=== PATIENT | female | born 1985 | race Two or more races ===

== ENCOUNTER 2016-09-05 03:03 | Inpatient (IN) | payer BC ==
--- NOTE | ~2016-09-05 | DS ---
Discharge Summary [facility] [id number] [place]. 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 SECONDARY DIAGNOSES: Portal vein thrombosis, pancytopenia. HISTORY OF PRESENT ILLNESS: Please see Dr. Ronquillo's dictation 09/05/2016. HOSPITAL COURSE: Admitted with severe hepatic encephalopathy with decreased level of conscious, ammonia level of 250. The patient received large doses of lactulose both p.o. and per rectum, IV hydration and fasting, in addition to her Xifaxan, and her ammonia level went down to 150 with normalization of mental status. The patient was not found to have any recurrence of her portal vein thrombosis so she was put back on the full dose of Lovenox 100 mg b.i.d. as she was supposed to have been. We requested records from her senior master scheduler in [place], we did not receive them but as her mental status was better and her MELD score was calculated only 14, it was advised that she follow up with her senior master scheduler regarding whether or not her severe hepatic encephalopathy would be indication for further moving up on the transplantation list. She agreed to be discharged, and she left following up with Dr. Ritesh Perez at [facility]. She will continue her home medications although spironolactone was held due to mild volume depletion at discharge. PAMELA/CURTIS Marco Thorne M.D. / [id number] CC: Jered Melendrez MD
--- NOTE | ~2016-09-05 | HP ---
History And Physical [address] [address] NAME: MICHEL RUANO : 85 STATUS : ADM IN [facility]#: [id number] AGE: 31 ADM/REG DATE : 09/05/16 MR#: [id number] REPORT SERV DATE: 09/05/16 DICTATED BY: FLO CATES DATE: 09/05/16 REPORT STATUS : Draft TRANSCRIBED BY: MODShayy DATE: 09/05/16 DATE OF ADMISSION: 09/05/2016 CHIEF COMPLAINT: A 31-year-old female with portal vein thrombosis cirrhosis, now presenting with lethargy and evidence of hepatic encephalopathy. HISTORY OF PRESENT ILLNESS: The patient's history was obtained through careful interview with the patient and her cousin coupled with review of [facility] medical records. The patient has longstanding cirrhosis thought to have been induced by a hypercoagulable state with portal vein thrombosis. She is supposedly on chronic therapeutic Lovenox, although for some reason her dose of Lovenox had recently been decreased to 40 mg subcutaneous daily, instead of a therapeutic dose. But it has been in the last few days that the patient has had increasing sleepiness and lethargy, and then finally on the morning of 09/04/2016 leading up to admission, the patient became overtly confused, disoriented, difficult to arouse at times with increasing lethargy. She describes dizziness, lightheadedness. She has had nausea, but no vomiting. She has been unstable on her feet with near falls. She describes a headache about 6/10 severity, felt diffusely. No abdominal pain but she has noticed abdominal distention. No chest pain. No shortness of breath. No cough. No fevers or chills. REVIEW OF SYSTEMS: Otherwise, complete review of systems was obtained and was negative. PAST MEDICAL HISTORY: 1. Portal vein thrombosis with hypercoagulable state. 2. Cirrhosis. 3. 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 4. Transient ischemic attack. 5. Asthma. 6. Hypertension. 7. Headache. 8. Anemia. 9. Right MCA 3 mm brain aneurysm. 10.Varices. 11.Splenomegaly. 12.Ascites. 13.Thrombocytopenia and anemia. 14.Urinary tract infection. 15.Childhood heart disease. History And Physical [address] [address] NAME: MICHEL RUANO : 85 STATUS : ADM IN PAT#: [id number] AGE: 31 ADM/REG DATE : 09/05/16 MR#: [id number] REPORT SERV DATE: 09/05/16 DICTATED BY: FLO CATES DATE: 09/05/16 REPORT STATUS : Draft TRANSCRIBED BY: CURTIS DATE: 09/05/16 PAST SURGICAL HISTORY: 1. Hysterectomy. 2. x2. 3. Cholecystectomy. 4. Tubal ligation. 5. Atrial septal defect, corrected at [facility]. ALLERGIES: PENICILLIN, NONSTEROIDAL ANTIINFLAMMATORY DRUGS, AND TRAMADOL. SOCIAL HISTORY: No tobacco abuse. No alcohol abuse. She is . Lives in [place], [place]. Immigrated from [place] when she was just 10 years old. Has two children. A 2- year-old son and a daughter less than a year old. She has had two miscarriages. No alcohol use. FAMILY HISTORY: Diabetes and cancer. She has had a sister who at 13 years of age of a liver disease and ascites. Grandmother with congestive heart failure. Brother with heart valve disease. CURRENT MEDICATIONS: Include ProAir, Tums, Bentyl, Benadryl, Lovenox 40 mg subcutaneous daily, Pepcid 40 mg p.o. daily, iron supplement, lactulose, Lopressor 25 mg p.o. daily, Protonix 40 mg p.o. daily, Phenergan, Zantac 150 mg p.o. daily, rifaximin 550 mg p.o. daily, and spironolactone 25 mg p.o. daily. PHYSICAL EXAMINATION: VITAL SIGNS: Temperature 98.8, pulse 112, blood pressure 146/82, respiratory rate 18, and O2 saturation 100% on room air. GENERAL: An ill-appearing female, very lethargic and confused. HEENT: Pupils equal, round, and reactive to light. No conjunctival pallor. No scleral icterus. Nares are patent. Oropharynx is clear of obstruction. Moist mucous membranes. NECK: Trachea midline. No thyromegaly. LYMPH: No cervical lymphadenopathy. No supraclavicular lymphadenopathy. RESPIRATORY: Clear to auscultation at bases. No wheezes, rales, or rhonchi. Normal respiratory effort. CARDIOVASCULAR: Tachycardic. Regular rhythm. No murmurs, rubs, or gallops. No current extremity edema is appreciated other than chronic appearing pitting edema around the ankles and shins. ABDOMEN: Seems distended by exam. Nontender throughout. I do appreciate hepatomegaly and splenomegaly by exam. DERMATOLOGICAL: Warm and dry extremities. No pallor. No cyanosis. PSYCHIATRIC: Very lethargic, but arousable to vocal stimuli. Oriented to location and time and recent history. Just very slow in her responses. She has a flat affect and irritable mood. LABORATORY DATA: Ammonia level 251, total bilirubin 2.9, alkaline phosphatase 257, AST 44, INR 1.4, lipase 71. White blood cell count 5.8, hemoglobin 9.9, hematocrit 27.7, and platelets 95. Sodium 147, potassium 3.7, chloride 116, bicarb 21, BUN 17, creatinine 0.9, History And Physical [facility] [address] [place]. [address] NAME: MICHEL RUANO : 85 STATUS : ADM IN [facility]#: [id number] AGE: 31 ADM/REG DATE : 09/05/16 MR#: [id number] REPORT SERV DATE: 09/05/16 DICTATED BY: FLO CATES DATE: 09/05/16 REPORT STATUS : Draft TRANSCRIBED BY: MODL DATE: 09/05/16 and glucose 106. STUDIES: EKG by my own evaluation shows sinus tachycardia. ASSESSMENT AND PLAN: 1. Hepatic encephalopathy. Severe history of seizures and coma from ammonia elevation. We will place on aggressive lactulose orally and lactulose enemas. 2. Portal vein thrombosis cirrhosis, resume Lovenox. Recheck a portal vein Doppler ultrasound. 3. Thrombocytopenia with anemia. 4. Ascites. KPL/MODL Flo Cates M.D. / [id number] CC: Kathy Lynne M.D.
[2016-09-05 02:15] LABS: BASOPHILS 0.2 %; BASOPHILS ABSOLUTE 0.01 10/3/uL (0.0-0.16); EOSINOPHILS ABSOLUTE 0.06 10/3/uL (0.0-0.53); ER CBC TAT 0 Hrs 03 Mins; HEMATOCRIT 27.7 % (36.0-48.0); HEMOGLOBIN 9.9 g/dL (12.0-16.0); IMMATURE GRANULOCYTES 0.2 %; IMMATURE GRANULOCYTES ABSOLUTE 0.01 10/3/uL (0.0-0.11); LYMPHOCYTES 11.6 %; LYMPHOCYTES ABSOLUTE 0.68 10/3/uL (0.67-4.30); MEAN CORPUS HGB CONC 35.7 g/dL (32.0-36.0); MEAN CORPUSCULAR VOLUME 95.2 fL (80-100); MEAN PLATELET VOLUME 9.2 fL (9.2-13.0); MONOCYTES 5.5 %; MONOCYTES ABSOLUTE 0.32 10/3/uL (0.21-1.20); NEUTROPHILS 81.5 %; NEUTROPHILS ABSOLUTE 4.76 10/3/uL (2.02-8.40); PLATELET COUNT 95 10/3/uL (150-400); RBC DISTRIBUTION WIDTH 13.2 % (12.0-16.0); RED CELL COUNT 2.91 10/6/uL (4.0-5.6); WHITE BLOOD CELLS 5.8 10/3/uL (4.5-10.5)
[2016-09-05 02:16] LABS: MANUAL DIFF NO %
[2016-09-05 02:20] LABS: ASCORBIC ACID (UR NOT ORDER) 20 (NEG); BILIRUBIN, URINE NEGATIVE (NEG); ER URINALYSIS TAT 0 Hrs 00 Mins; KETONE, URINE NEGATIVE (NEG); LEUKOCYTE ESTERASE(NOT OR SMALL (NEG); NITRITE (URINE) NEG (NEG); WBC (NOT ORDERED) (RFLEX) 8 (0-5)
[2016-09-05 02:23] LABS: INTERNATIONAL NORMAL RATI 1.4 UNITS (-); PARTIAL THROMBO TIME 38.9 SEC (22.5-37.2); PROTIME (NOT ORD) 16.8 SEC (12.0-14.5)
[2016-09-05 02:33] LABS: ALBUMIN 3.1 G/DL (3.5-5.0); ALKALINE PHOSPHATASE 257 U/L (45-117); BUN (BLOOD UREA NITROGEN) 17 MG/DL (6-23); CALCIUM, SERUM 8.2 MG/DL (8.5-10.4); CHLORIDE, SERUM 116 MMOL/L (96-112); CO2 (CARBON DIOXIDE) 21 MMOL/L (24-34); CREATININE 0.89 MG/DL (0.55-1.02); DIRECT BILIRUBIN 1.1 MG/DL (0.0-0.4); GFR AFRICAN AMERICAN 100 ML/MIN (>=60); GFR NON AFRICAN AMERICAN 86 ML/MIN (>=60); GLOBULIN 3.2 G/DL (2.5-4.1); GLUCOSE, SERUM 106 MG/DL (60-99); INDIRECT BILIRUBIN(NOT ORDER) 1.8 MG/DL (0.1-0.9); POTASSIUM, SERUM 3.7 MMOL/L (3.5-5.3); SGOT(AST) 44 U/L (5-40); SGPT(ALT) 32 U/L (5-65); SODIUM, SERUM 147 MMOL/L (135-148); TOTAL BILIRUBIN 2.9 MG/DL (0-1.2); TOTAL PROTEIN 6.3 G/DL (6.0-8.5); TROPONIN I <0.02 NG/ML (<0.05)
[2016-09-05 02:39] LABS: BAND NEUTROPHILS 3 %; EOSINOPHILS 3 %; EOSINOPHILS ABSOLUTE (CALC) 0.17 10/3/uL (0.0-0.53); ER DIFF TAT 0 Hrs 27 Mins; LYMPHOCYTES 9 %; LYMPHOCYTES ABSOLUTE (CALC) 0.52 10/3/uL (0.67-4.30); MONOCYTES 2 %; MONOCYTES ABSOLUTE (CALC) 0.12 10/3/uL (0.21-1.20); NEUTROPHILS ABSOLUTE (CALC) 4.99 10/3/uL (2.02-8.40); PLATELET ESTIMATE DEC (ADEQUATE); RBC MORPHOLOGY NORM (NORMAL); SEGMENTED NEUTROPHIL (0) 83 %; TOTAL NUCLEATED CELLS 100
[2016-09-05] MEDS ORDERED: BENTYL20 PO (04:16)
[2016-09-05] MEDS ORDERED: CONSTULOSE PO (04:16)
[2016-09-05] MEDS ORDERED: PROTONIX PO (04:16)
[2016-09-05] MEDS ORDERED: SPIRO25 PO (04:17)
[2016-09-05] MEDS ORDERED: PR25 PO (04:17)
[2016-09-05] MEDS ORDERED: PEPCID40 MG PO (04:18)
[2016-09-05] MEDS ORDERED: LOVENOX40 SC (04:29)
[2016-09-05] MEDS ORDERED: XIFAXAN550 MG PO (04:33)
[2016-09-05] MEDS ORDERED: PROAIR HFA INH (04:34)
[2016-09-05] MEDS ORDERED: TUMSROLL PO (04:35)
[2016-09-05] MEDS ORDERED: ALBUTEROL0.083 % INH (04:35)
[2016-09-05] MEDS ORDERED: FERROUS SULF325 M1 PO (04:36)
[2016-09-05] MEDS ORDERED: BEN25 PO (04:36)
[2016-09-05] MEDS ORDERED: ZANTAC 150 PO (04:37)
[2016-09-05] MEDS ORDERED: LOP25 PO (04:37)
[2016-09-05] MEDS ORDERED: *UNABLE3 (04:39)
[2016-09-05 12:04] LABS: HEMOGLOBIN 8.9 g/dL (12.0-16.0); MEAN CORPUS HGB CONC 35.9 g/dL (32.0-36.0); MEAN CORPUSCULAR HEMOGLOB 34.8 pg (26.0-34.0); MEAN CORPUSCULAR VOLUME 96.9 fL (80-100); MEAN PLATELET VOLUME 9.5 fL (9.2-13.0); PLATELET COUNT 90 10/3/uL (150-400); RBC DISTRIBUTION WIDTH 13.3 % (12.0-16.0); RED CELL COUNT 2.56 10/6/uL (4.0-5.6); WHITE BLOOD CELLS 4.1 10/3/uL (4.5-10.5)
[2016-09-05 12:08] LABS: HEMATOCRIT 24.8 % (36.0-48.0); MANUAL DIFF YES %
[2016-09-05 12:16] LABS: INTERNATIONAL NORMAL RATI 1.6 UNITS (-); PARTIAL THROMBO TIME 55.8 SEC (22.5-37.2); PROTIME (NOT ORD) 19.1 SEC (12.0-14.5)
[2016-09-05 12:33] LABS: ALBUMIN 2.7 G/DL (3.5-5.0); ALKALINE PHOSPHATASE 218 U/L (45-117); BUN (BLOOD UREA NITROGEN) 17 MG/DL (6-23); CALCIUM, SERUM 8.4 MG/DL (8.5-10.4); CHLORIDE, SERUM 122 MMOL/L (96-112); CO2 (CARBON DIOXIDE) 23 MMOL/L (24-34); CREATININE 0.91 MG/DL (0.55-1.02); GFR AFRICAN AMERICAN 97 ML/MIN (>=60); GFR NON AFRICAN AMERICAN 84 ML/MIN (>=60); GLOBULIN 2.8 G/DL (2.5-4.1); GLUCOSE, SERUM 99 MG/DL (60-99); POTASSIUM, SERUM 3.6 MMOL/L (3.5-5.3); SGOT(AST) 41 U/L (5-40); SGPT(ALT) 30 U/L (5-65); SODIUM, SERUM 151 MMOL/L (135-148); TOTAL BILIRUBIN 2.6 MG/DL (0-1.2); TOTAL PROTEIN 5.5 G/DL (6.0-8.5); ULTRASENSITIVE TSH 0.956 MCIU/ML (0.358-3.740)
[2016-09-05 12:38] LABS: BAND NEUTROPHILS 3 %; EOSINOPHILS 1 %; EOSINOPHILS ABSOLUTE (CALC) 0.04 10/3/uL (0.0-0.53); LYMPHOCYTES 17 %; MONOCYTES 4 %; MONOCYTES ABSOLUTE (CALC) 0.16 10/3/uL (0.21-1.20); SEGMENTED NEUTROPHIL (0) 75 %; TOTAL NUCLEATED CELLS 100
[2016-09-05 12:39] LABS: PLATELET ESTIMATE DEC (ADEQUATE); RBC MORPHOLOGY NORM (NORMAL)
[2016-09-05 13:00] LABS: B NATRIURETIC PEPTIDE (BNP) 33.7 PG/ML (< 100.0)
[2016-09-06 05:40] LABS: BASOPHILS 0.2 %; BASOPHILS ABSOLUTE 0.01 10/3/uL (0.0-0.16); EOSINOPHILS 3.3 %; EOSINOPHILS ABSOLUTE 0.14 10/3/uL (0.0-0.53); HEMATOCRIT 26.5 % (36.0-48.0); HEMOGLOBIN 9.2 g/dL (12.0-16.0); IMMATURE GRANULOCYTES 0.2 %; IMMATURE GRANULOCYTES ABSOLUTE 0.01 10/3/uL (0.0-0.11); LYMPHOCYTES ABSOLUTE 0.72 10/3/uL (0.67-4.30); MEAN CORPUS HGB CONC 34.7 g/dL (32.0-36.0); MEAN CORPUSCULAR HEMOGLOB 34.1 pg (26.0-34.0); MEAN CORPUSCULAR VOLUME 98.1 fL (80-100); MEAN PLATELET VOLUME 9.3 fL (9.2-13.0); MONOCYTES 4.5 %; MONOCYTES ABSOLUTE 0.19 10/3/uL (0.21-1.20); NEUTROPHILS 74.8 %; NEUTROPHILS ABSOLUTE 3.16 10/3/uL (2.02-8.40); PLATELET COUNT 89 10/3/uL (150-400); RBC DISTRIBUTION WIDTH 13.4 % (12.0-16.0); WHITE BLOOD CELLS 4.2 10/3/uL (4.5-10.5)
[2016-09-06 05:42] LABS: MANUAL DIFF NO %
[2016-09-06 05:46] LABS: INTERNATIONAL NORMAL RATI 1.7 UNITS (-); PROTIME (NOT ORD) 19.5 SEC (12.0-14.5)
[2016-09-06 05:47] LABS: PARTIAL THROMBO TIME 63.1 SEC (22.5-37.2)
[2016-09-06 06:01] LABS: ALBUMIN 2.7 G/DL (3.5-5.0); ALKALINE PHOSPHATASE 225 U/L (45-117); BUN (BLOOD UREA NITROGEN) 14 MG/DL (6-23); CALCIUM, SERUM 8.5 MG/DL (8.5-10.4); CHLORIDE, SERUM 119 MMOL/L (96-112); CO2 (CARBON DIOXIDE) 19 MMOL/L (24-34); CREATININE 0.81 MG/DL (0.55-1.02); GFR AFRICAN AMERICAN 112 ML/MIN (>=60); GFR NON AFRICAN AMERICAN 97 ML/MIN (>=60); GLOBULIN 2.8 G/DL (2.5-4.1); GLUCOSE, SERUM 85 MG/DL (60-99); PHOSPHORUS, SERUM 2.6 MG/DL (2.5-4.5); POTASSIUM, SERUM 3.6 MMOL/L (3.5-5.3); SGOT(AST) 45 U/L (5-40); SGPT(ALT) 31 U/L (5-65); SODIUM, SERUM 148 MMOL/L (135-148); TOTAL BILIRUBIN 2.5 MG/DL (0-1.2); TOTAL PROTEIN 5.5 G/DL (6.0-8.5)
[2016-09-07 04:42] LABS: INTERNATIONAL NORMAL RATI 1.5 UNITS (-); PROTIME (NOT ORD) 17.6 SEC (12.0-14.5)
[2016-09-07 04:47] LABS: BASOPHILS 0.4 %; BASOPHILS ABSOLUTE 0.02 10/3/uL (0.0-0.16); EOSINOPHILS 5.2 %; EOSINOPHILS ABSOLUTE 0.28 10/3/uL (0.0-0.53); HEMATOCRIT 28.9 % (36.0-48.0); HEMOGLOBIN 10.2 g/dL (12.0-16.0); IMMATURE GRANULOCYTES 0.4 %; IMMATURE GRANULOCYTES ABSOLUTE 0.02 10/3/uL (0.0-0.11); LYMPHOCYTES 19.3 %; LYMPHOCYTES ABSOLUTE 1.04 10/3/uL (0.67-4.30); MEAN CORPUS HGB CONC 35.3 g/dL (32.0-36.0); MEAN CORPUSCULAR HEMOGLOB 34.1 pg (26.0-34.0); MEAN CORPUSCULAR VOLUME 96.7 fL (80-100); MEAN PLATELET VOLUME 9.9 fL (9.2-13.0); MONOCYTES 6.7 %; MONOCYTES ABSOLUTE 0.36 10/3/uL (0.21-1.20); NEUTROPHILS ABSOLUTE 3.66 10/3/uL (2.02-8.40); PLATELET COUNT 107 10/3/uL (150-400); RBC DISTRIBUTION WIDTH 13.1 % (12.0-16.0); RED CELL COUNT 2.99 10/6/uL (4.0-5.6); WHITE BLOOD CELLS 5.4 10/3/uL (4.5-10.5)
[2016-09-07 04:50] LABS: MANUAL DIFF NO %
[2016-09-07 04:52] LABS: A/G RATIO 0.9 (0.7-1.9); ALBUMIN 2.9 G/DL (3.5-5.0); CALCIUM, SERUM 8.6 MG/DL (8.5-10.4); CHLORIDE, SERUM 115 MMOL/L (96-112); CO2 (CARBON DIOXIDE) 21 MMOL/L (24-34); CREATININE 0.89 MG/DL (0.55-1.02); GFR AFRICAN AMERICAN 100 ML/MIN (>=60); GFR NON AFRICAN AMERICAN 86 ML/MIN (>=60); GLOBULIN 3.3 G/DL (2.5-4.1); GLUCOSE, SERUM 93 MG/DL (60-99); PHOSPHORUS, SERUM 2.5 MG/DL (2.5-4.5); POTASSIUM, SERUM 3.5 MMOL/L (3.5-5.3); SGOT(AST) 58 U/L (5-40); SGPT(ALT) 35 U/L (5-65); SODIUM, SERUM 144 MMOL/L (135-148); TOTAL BILIRUBIN 2.5 MG/DL (0-1.2); TOTAL PROTEIN 6.2 G/DL (6.0-8.5)
[2016-09-07 05:08] LABS: ALKALINE PHOSPHATASE 275 U/L (45-117); BUN (BLOOD UREA NITROGEN) 10 MG/DL (6-23)
[2016-09-08 06:37] LABS: BASOPHILS 0.5 %; BASOPHILS ABSOLUTE 0.02 10/3/uL (0.0-0.16); EOSINOPHILS 6.5 %; EOSINOPHILS ABSOLUTE 0.28 10/3/uL (0.0-0.53); HEMATOCRIT 27.7 % (36.0-48.0); HEMOGLOBIN 9.9 g/dL (12.0-16.0); IMMATURE GRANULOCYTES 0.2 %; IMMATURE GRANULOCYTES ABSOLUTE 0.01 10/3/uL (0.0-0.11); LYMPHOCYTES 24.1 %; LYMPHOCYTES ABSOLUTE 1.03 10/3/uL (0.67-4.30); MEAN CORPUS HGB CONC 35.7 g/dL (32.0-36.0); MEAN CORPUSCULAR HEMOGLOB 34.5 pg (26.0-34.0); MEAN CORPUSCULAR VOLUME 96.5 fL (80-100); MEAN PLATELET VOLUME 10.2 fL (9.2-13.0); MONOCYTES 6.3 %; MONOCYTES ABSOLUTE 0.27 10/3/uL (0.21-1.20); NEUTROPHILS 62.4 %; NEUTROPHILS ABSOLUTE 2.67 10/3/uL (2.02-8.40); PLATELET COUNT 95 10/3/uL (150-400); RBC DISTRIBUTION WIDTH 13.1 % (12.0-16.0); RED CELL COUNT 2.87 10/6/uL (4.0-5.6); WHITE BLOOD CELLS 4.3 10/3/uL (4.5-10.5)
[2016-09-08 06:38] LABS: MANUAL DIFF NO %
[2016-09-08 06:53] LABS: % IRON SAT 89 % (20-50); A/G RATIO 0.9 (0.7-1.9); ALBUMIN 2.7 G/DL (3.5-5.0); BUN (BLOOD UREA NITROGEN) 9 MG/DL (6-23); CALCIUM, SERUM 7.9 MG/DL (8.5-10.4); CHLORIDE, SERUM 118 MMOL/L (96-112); CO2 (CARBON DIOXIDE) 23 MMOL/L (24-34); CREATININE 0.82 MG/DL (0.55-1.02); FERRITIN 129 NG/ML (8-252); GFR AFRICAN AMERICAN 111 ML/MIN (>=60); GFR NON AFRICAN AMERICAN 95 ML/MIN (>=60); GLUCOSE, SERUM 94 MG/DL (60-99); IRON BINDING CAPACITY 174 MCG/DL (225-410); IRON, SERUM 155 MCG/DL (35-150); POTASSIUM, SERUM 3.6 MMOL/L (3.5-5.3); SGOT(AST) 35 U/L (5-40); SGPT(ALT) 28 U/L (5-65); SODIUM, SERUM 146 MMOL/L (135-148); TOTAL BILIRUBIN 2.7 MG/DL (0-1.2); TOTAL PROTEIN 5.7 G/DL (6.0-8.5)
[2016-09-08 06:54] LABS: ALKALINE PHOSPHATASE 246 U/L (45-117)
== END 2016-09-08 18:14 | disposition home or self-care (01) | DRG 442 ==
LOC: ER 03:03 → 7NO 04:27
PROVIDERS: Hospitalist; Internal Medicine; Nurse Practitioner
DX: K72.90 Hepatic failure, unspecified without coma (principal); D61.818 Other pancytopenia; I67.1 Cerebral aneurysm, nonruptured; R18.8 Other ascites; D69.6 Thrombocytopenia, unspecified; R16.1 Splenomegaly, not elsewhere classified; J45.909 Unspecified asthma, uncomplicated; I10 Essential (primary) hypertension; K74.69 Other cirrhosis of liver; Z86.718 Personal history of other venous thrombosis and embolism; Z87.440 Personal history of urinary (tract) infections; Z86.73 Personal history of transient ischemic attack (TIA), and cerebral infarction without residual deficits; Z90.710 Acquired absence of both cervix and uterus; Z90.49 Acquired absence of other specified parts of digestive tract; Z79.01 Long term (current) use of anticoagulants; Z88.0 Allergy status to penicillin; Z93.3 Colostomy status; Z87.74 Personal history of (corrected) congenital malformations of heart and circulatory system
CPT/HCPCS: 71010; 80053; 81001; 82140; 82248; 82728; 83540; 83550; 83690; 83735; 83880; 84100; 84443; 84484; 85025; 85610; 85730; 87086; 93005; 93975; 96374; 99285; A9270-GY; J1200; J2405